=== PATIENT | female | born 1940 | race American Indian/Alaskan Native ===

== ENCOUNTER 2019-02-15 13:44 | Emergency (ER) | payer SELFPAY ==
[2019-02-15 15:29] VITALS: BP 113/65
== END 2019-02-15 15:04 | disposition left against medical advice (07) ==
LOC: ED 13:44
DX: R55 Syncope and collapse (principal); Z53.21 Procedure and treatment not carried out due to patient leaving prior to being seen by health care provider
CPT/HCPCS: 99283

== ENCOUNTER 2019-02-15 16:23 | Emergency (ER) | payer OTHER, MEDICARE ==
--- NOTE | 2019-02-15 16:43 | Event Note ---
ED Screening Note Date of service: 02/15/19 Time: 16:43 ED Screening Note: This is a 78 y.o. F. that presents to the ER s/p syncopal episode this morning. PMH of pacemaker, osteoporosis Denies hitting her head This initial assessment/diagnostic orders/clinical plan/treatment(s) is/are subject to change based on patients health status, clinical progression and re- assessment by fellow clinical providers in the ED. Further treatment and workup at subsequent clinical providers discretion. Patient/guardian urged not to elope from the ED as their condition may be serious if not clinically assessed and managed. Initial orders include: Glucose, EKG
[2019-02-15] MEDS ORDERED: ASPIRIN PO ONE (18:49)
[2019-02-15 19:11] LABS: Hematocrit 34.5 % (30.3-42.9); Hemoglobin 11.2 gm/dl (10.1-14.3); Mean Corpuscular HGB Conc 33 % (30-34); Mean Corpuscular Volume 83 fl (79-97); Platelet Count 233 K/mm3 (140-440); Red Blood Count 4.17 M/mm3 (3.65-5.03); Red Cell Distribution Width 14.2 % (13.2-15.2)
--- NOTE | 2019-02-15 19:27 | XRay Report ---
CHEST 2 VIEWS INDICATION: Chest Pain. COMPARISON: 03/19/2009. FINDINGS: Support devices: Pacemaker unchanged. Heart: Stable mild cardiomegaly. Lungs/Pleura: No acute air space or interstitial disease. No significant pleural effusion. IMPRESSION: No acute findings. Signer Name: Hiren Agrawal MD Signed: 02/15/2019 7:22 PM Workstation Name: [id number]
[2019-02-15 19:33] LABS: BUN/Creatinine Ratio 18; Blood Urea Nitrogen 18 mg/dL (7-17); Calcium 9.9 mg/dL (8.4-10.2); Hemolysis Index 8
[2019-02-15 20:08] LABS: Basophils % (Manual) 0 % (0.0-1.8); Eosinophils % (Manual) 0 % (0.0-4.3); Total Cells Counted 100
[2019-02-15 20:58] LABS: Bilirubin,Urine NEG (Negative); Blood,Urine NEG (Negative); Color,Urine Colorless (Yellow); Protein,Urine <15 mg/dL mg/dL (Negative); Urobilinogen,Urine < 2.0 mg/dL (<2.0)
--- NOTE | 2019-02-15 21:14 | Cat Scan Report ---
CT head/brain wo con INDICATION: syncope. TECHNIQUE: All CT scans at this location are performed using the following dose modulation technique: Automated exposure control. CONTRAST: None. COMPARISON: None available. FINDINGS: The ventricular system is appropriate in size and configuration without midline shift. Nega tive for mass, stroke or hemorrhage. Imaged portions of the paranasal sinuses are clear. Mild low density within the periventricular white matter is typical of chronic small vessel scheming change. IMPRESSION: Mild chronic small vessel ischemic change. Signer Name: Hiren Agrawal MD Signed: 02/15/2019 9:09 PM Workstation Name: [id number]
--- NOTE | 2019-02-15 21:21 | Emergency Department Report ---
ED Syncope HPI - General Chief Complaint: Syncope Stated Complaint: FAINTED Time Seen by Provider: 02/15/19 16:43 Source: patient, old records (no previous visit besides today er visit) Exam Limitations: no limitations - History of Present Illness Initial Comments: 78-year-old female with a past medical history of osteoporosis, pacemaker placement, fibroid tumors and fibroid tumors presents to the hospital complaining of syncopal episode [place] Patient was sitting and then stood up, felt dizzy, then passed out striking the ground. Patient has some visual dizziness upon waking but currently feels normal. She was seen here earlier at 2 PM but left AMA prior to M.D. evaluation at 3 PM to checkon her disabled son. She now returns requesting to be seen and reports that she's been asymptomatic since fall earlier. She denies headache, chest pain, shortness of breath, palpitations, nausea, vomiting, diarrhea, melena, hematochezia, dysuria, and focal weakness or numbness. [employer] Operator: Shannon Barrera PMD: none - Related Data Allergies/Adverse Reactions: Allergies No Known Allergies Allergy (Unverified 02/15/19 14:01) Home Medications: Ambulatory Orders No Known Home Medications [No Reported Home Medications] 02/15/19 ED Review of Systems ROS: Stated complaint: FAINTED Other details as noted in HPI Comment: All other systems reviewed and negative ED Past Medical Hx - Past Medical History Additional medical history: osteoporosis, pacemaker,fibroid tumors - Surgical History Additional Surgical History: pacemaker - Social History Smoking Status: Never Smoker Substance Use Type: None - Medications Home Medications: Home Medications Medication Instructions Recorded Confirmed Last Taken Type No Known Home Medications [No 02/15/19 02/15/19 Unknown History Reported Home Medications] ED Physical Exam - General Limitations: No Limitations - Other Other exam information: General: no acute distress Head: Atraumatic, normocephalic Eyes: Normal appearance, pupils equal and reactive to light, extraocular movements intact ENT: normal oropharynx Neck: Normal appearance, no stridor, no meningismus, no midline tenderness. Cardiovascular: Regular rate and rhythm Chest: Clear to auscultation, no wheezes, rales, or crackles Abdomen: nondistended, soft, nontender, no rebound or guarding Extremity: Normal appearance, no deformity, full range of motion Neuro: Alert and oriented 3, clear speech, no gross motor or sensory deficit Skin: No warmth, erythema ED Course Vital Signs 02/15/19 02/15/19 02/15/19 16:43 18:44 18:47 Temperature 97.3 F L 98.5 F 97.5 F L Pulse Rate 60 60 60 Respiratory 18 18 20 Rate Blood Pressure 119/69 Blood Pressure 122/80 122/80 [Right] O2 Sat by Pulse 100 100 100 Oximetry 02/15/19 02/15/19 20:00 20:15 Temperature 97.9 F Pulse Rate 60 60 Respiratory 14 12 Rate Blood Pressure 146/76 Blood Pressure 146/76 [Right] O2 Sat by Pulse 100 99 Oximetry ED Medical Decision Making - Lab Data Result diagrams: 02/15/19 19:04 02/15/19 19:04 Lab Results 02/15/19 02/15/19 02/15/19 Range/Units 19:04 19:04 20:35 WBC 6.2 (4.5-11.0) K/mm3 RBC 4.17 (3.65-5.03) M/mm3 Hgb 11.2 (10.1-14.3) gm/dl Hct 34.5 (30.3-42.9) % MCV 83 (79-97) fl MCH 27 L (28-32) pg MCHC 33 (30-34) % RDW 14.2 (13.2-15.2) % Plt Count 233 (140-440) K/mm3 Add Manual Diff Complete Total Counted 100 Seg Neuts % (Manual) 73.0 H (40.0-70.0) % Band Neutrophils % 0 % Lymphocytes % (Manual) 24.0 (13.4-35.0) % Reactive Lymphs % (Man) 0 % Monocytes % (Manual) 3.0 (0.0-7.3) % Eosinophils % (Manual) 0 (0.0-4.3) % Basophils % (Manual) 0 (0.0-1.8) % Metamyelocytes % 0 % Myelocytes % 0 % Promyelocytes % 0 % Blast Cells % 0 % Nucleated RBC % Not Reportable Seg Neutrophils # Man 4.5 (1.8-7.7) K/mm3 Band Neutrophils # 0.0 K/mm3 Lymphocytes # (Manual) 1.5 (1.2-5.4) K/mm3 Abs React Lymphs (Man) 0.0 K/mm3 Monocytes # (Manual) 0.2 (0.0-0.8) K/mm3 Eosinophils # (Manual) 0.0 (0.0-0.4) K/mm3 Basophils # (Manual) 0.0 (0.0-0.1) K/mm3 Metamyelocytes # 0.0 K/mm3 Myelocytes # 0.0 K/mm3 Promyelocytes # 0.0 K/mm3 Blast Cells # 0.0 K/mm3 WBC Morphology Not Reportable Hypersegmented Neuts Not Reportable Hyposegmented Neuts Not Reportable Hypogranular Neuts Not Reportable Smudge Cells Not Reportable Toxic Granulation Not Reportable Toxic Vacuolation Not Reportable Dohle Bodies Not Reportable Pelger-Huet Anomaly Not Reportable Geovanna Rods Not Reportable Platelet Estimate Not Reportable Clumped Platelets Not Reportable Plt Clumps, EDTA Not Reportable Large Platelets Not Reportable Giant Platelets Not Reportable Platelet Satelliting Not Reportable Plt Morphology Comment Not Reportable RBC Morphology Not Reportable Dimorphic RBCs Not Reportable Polychromasia Not Reportable Hypochromasia Not Reportable Poikilocytosis Not Reportable Anisocytosis Not Reportable Microcytosis Not Reportable Macrocytosis Not Reportable Spherocytes Not Reportable Pappenheimer Bodies Not Reportable Sickle Cells Not Reportable Target Cells Not Reportable Tear Drop Cells Not Reportable Ovalocytes Not Reportable Helmet Cells Not Reportable [place] Bodies Not Reportable [place] Rings Not Reportable Juve Cells Not Reportable Bite Cells Not Reportable Crenated Cell Not Reportable Elliptocytes Not Reportable Acanthocytes (Spur) Not Reportable Rouleaux Not Reportable Hemoglobin C Crystals Not Reportable Schistocytes Not Reportable Malaria parasites Not Reportable Matthew Bodies Not Reportable Hem Pathologist Commnt No Sodium 135 L (137-145) mmol/L Potassium 4.6 (3.6-5.0) mmol/L Chloride 101.7 (98-107) mmol/L Carbon Dioxide 22 (22-30) mmol/L Anion Gap 16 mmol/L BUN 18 H (7-17) mg/dL Creatinine 1.0 (0.7-1.2) mg/dL Estimated GFR > 60 ml/min BUN/Creatinine Ratio 18 % Glucose 94 (65-100) mg/dL Calcium 9.9 (8.4-10.2) mg/dL Troponin T < 0.010 (0.00-0.029) ng/mL Urine Color Colorless (Yellow) Urine Turbidity Clear (Clear) Urine pH 7.0 (5.0-7.0) Ur Specific [place] 1.004 (1.003-1.030) Urine Protein <15 mg/dl (Negative) mg/dL Urine Glucose (UA) Neg (Negative) mg/dL Urine Ketones Neg (Negative) mg/dL Urine Blood Neg (Negative) Urine Nitrite Neg (Negative) Urine Bilirubin Neg (Negative) Urine Urobilinogen < 2.0 (<2.0) mg/dL Ur Leukocyte Esterase Tr (Negative) Urine WBC (Auto) 2.0 (0.0-6.0) /HPF Urine RBC (Auto) 1.0 (0.0-6.0) /HPF - EKG Data -: EKG Interpreted by De EKG shows normal: sinus rhythm, axis (qrs 42), QRS complexes (qrsd 80), ST-T waves (no lvh) - EKG Data When compared to previous EKG there are: previous EKG unavailable - Radiology Data Radiology results: report reviewed CT head/brain wo con INDICATION: syncope. TECHNIQUE: All CT scans at this location are performed using the following dose modulation technique: Automated exposure control. CONTRAST: None. COMPARISON: None available. FINDINGS: The ventricular system is appropriate in size and configuration without midline shift. Negative for mass, stroke or hemorrhage. Imaged portions of the paranasal sinuses are clear. Mild low density within the periventricular white matter is typical of chronic small vessel scheming change. IMPRESSION: Mild chronic small vessel ischemic change. CHEST 2 VIEWS INDICATION: Chest Pain. COMPARISON: 03/19/2009. FINDINGS: Support devices: Pacemaker unchanged. Heart: Stable mild cardiomegaly. Lungs/Pleura: No acute air space or interstitial disease. No significant pleural effusion. IMPRESSION: No acute findings. - Medical Decision Making Patient ED workup unremarkable. Admission advised him a cardiac history and syncopal episode as well as age. Patient refuses admission at this time and was again will sign out AGAINST MEDICAL ADVICE with plan to call her doctor tomorrow. trop neg x2 pt asymptomatic - Differential Diagnosis arrhythmia, vasovagal, anemia Critical Care Time: No Critical care attestation.: If time is entered above; I have spent that time in minutes in the direct care of this critically ill patient, excluding procedure time. ED Disposition Clinical Impression: Syncope, Pacemaker Disposition: - LEFT AGAINST MED ADVICE Is pt being admited?: No Does the pt Need Aspirin: No Condition: Stable Instructions: Syncope (ED) Additional Instructions: You are signing out AGAINST MEDICAL ADVICE because admission was recommended because you passed out and have a significant heart history. Follow up with your wireless consultant as soon as possible. If symptoms worsen as indicated by your discharge instructions. Referrals: DEBORAH BARRERA MD [Staff Physician] - 24 Hours ([employer] Operator) EUGENE WHITE MD [Staff Physician] - 3-5 Days (Primary care doctor) Forms: AMA Form Time of Disposition: 21:36
[2019-02-15 21:39] VITALS: BP 137/72
== END 2019-02-15 21:55 | disposition left against medical advice (07) ==
LOC: ED 16:23
DX: R55 Syncope and collapse (principal); M81.0 Age-related osteoporosis without current pathological fracture; Z85.42 Personal history of malignant neoplasm of other parts of uterus; Z95.0 Presence of cardiac pacemaker
CPT/HCPCS: 36415; 70450; 71046; 80048; 81001; 84484; 85007; 85025; 93005; 93010